=== PATIENT | female | born 1975 | race Caucasian/White ===

== ENCOUNTER 2017-06-28 08:27 | Observation (INO) | payer OTHER ==
[2017-06-28] MEDS ORDERED: PHENAZOPYRIDINE HCL 200 MG TAB PO ONE (08:49)
[2017-06-28] MEDS ORDERED: ceFAZolin 2 GM/SWFI 2 GM/20 ML SYR IVP ONE (08:49)
[2017-06-28] MEDS ORDERED: LIDOCAINE 1% 2 ML INJ ID PRN (08:50)
[2017-06-28] MEDS ORDERED: LR 1,000 ML IV ONE (08:50)
[2017-06-28] MEDS ORDERED: LIDOCAINE 1% 2 ML INJ ONE (09:02)
--- NOTE | 2017-06-28 09:22 | PDHPUP ---
History & Physical Update H&P update statement: This history and physical update is based on an assessment of the patient which was completed after admission or registration (within 24 hours), but prior to the surgery/procedure. H&P update: H&P reviewed & patient examined, no change in patient's condition since H&P completed
[2017-06-28] MEDS ORDERED: MIDAZOLAM 2 MG/2 ML VIAL IVP ONE (09:24)
--- NOTE | 2017-06-28 09:26 | PDANEPAE ---
ANE History of Present Illness Endometriosis ANE Past Medical History - Cardiovascular History Hx Hypertension: No Hx Arrhythmias: No Hx Chest Pain: No Hx Coronary Artery / Peripheral Vascular Disease: No Hx CHF / Valvular Disease: No Hx Palpitations: No - Pulmonary History Hx COPD: No Hx Asthma/Reactive Airway Disease: No Hx Recent Upper Respiratory Infection: No Hx Oxygen in Use at Home: No Hx Sleep Apnea: No Sleep Apnea Screening Result - Last Documented: Negative - Neurologic History Hx Cerebrovascular Accident: No Hx Seizures: No Hx Dementia: No - Endocrine History Hx Diabetes: No - Renal History Hx Renal Disorders: No - Liver History Hx Hepatic Disorders: No - Neurological & Psychiatric Hx Hx Neurological and Psychiatric Disorders: No - Cancer History Hx Cancer: No - Congenital Disorder History Hx Congenital Disorders: No - GI History Hx Gastrointestinal Disorders: No - Other Health History Other Health History: none - Chronic Pain History Chronic Pain: No - Surgical History Prior Surgeries: left ankle reconstruction 2013 ANE Review of Systems Review of Systems: - Exercise capacity METS (RN): 4 METS ANE Patient History - Allergies Allergies/Adverse Reactions: No Known Allergies Allergy (Verified 06/23/17 10:49) - Home Medications Home medications: home medication list seen and reviewed Home Medications: Herbals/Supplements -Info Only 1 ea PO DAILY 06/23/17 [Last Taken 06/21/17] Vitamin B Complex [B Complex] 1 ea PO DAILY 06/23/17 [Last Taken 06/21/17] - NPO status NPO Since - Liquids (Date): 06/27/17 NPO Since - Liquids (Time): 23:00 NPO Since - Solids (Date): 06/27/17 NPO Since - Solids (Time): 19:00 - Anes Hx Anes Hx: no prior problems, post operative nausea - Smoking Hx Smoking Status: Never smoked - Family Anes Hx Family Hx Anesthesia Complications: none ANE Labs/Vital Signs - Vital Signs Blood Pressure: 122/83 Heart Rate: 67 Respiratory Rate: 16 O2 Sat (%): 98 Height: 160.02 cm Weight: 72.575 kg ANE Physical Exam - Airway Neck exam: FROM Mallampati Score: Class 1 Mouth exam: normal dental/mouth exam - Pulmonary Pulmonary: no respiratory distress - Cardiovascular Cardiovascular: regular rate and rhythym - ASA Status ASA Status: II ANE Anesthesia Plan Anesthesia Plan: general endotracheal anesthesia
[2017-06-28] MEDS ORDERED: fentaNYL 100 MCG/2 ML INJ ONE ×3 (09:29→12:06)
[2017-06-28] MEDS ORDERED: LIDOCAINE 2% 5 ML SDV ONE (09:30)
[2017-06-28] MEDS ORDERED: ROCURONIUM 50 MG/5 ML VIAL ONE ×2 (09:30→10:38)
[2017-06-28] MEDS ORDERED: DEXAMETHASONE 4 MG/ML VIAL ONE (09:30)
[2017-06-28] MEDS ORDERED: PROPOFOL 200 MG/20 ML VIAL ONE (09:30)
[2017-06-28] MEDS ORDERED: ONDANSETRON 4 MG/2 ML VIAL IVP PRN ×2 (10:37→11:52)
[2017-06-28] MEDS ORDERED: PROMETHAZINE HCL 25 MG/ML INJ IVP PRN ×2 (10:37→11:52)
[2017-06-28] MEDS ORDERED: NALOXONE HCL 0.4 MG/ML INJ IVP PRN (10:37)
[2017-06-28] MEDS ORDERED: GLYCOPYRROLATE 0.2 MG/1 ML VIAL ONE (10:38)
[2017-06-28] MEDS ORDERED: SUGAMMADEX SODIUM 200 MG/2 ML VIAL IVP ONE (11:01)
[2017-06-28] MEDS ORDERED: ONDANSETRON 4 MG/2 ML VIAL ONE (11:01)
[2017-06-28] MEDS ORDERED: HYDROmorphONE/DILAUDID 1 MG/ML INJ IVP PRN (11:52)
[2017-06-28] MEDS ORDERED: DIAZEPAM 10 MG/2 ML SYR IVP PRN (11:52)
--- NOTE | 2017-06-28 11:55 | POSTOPPROG ---
Post Op Note Date of Operation: 06/28/17 Surgeon: Rolf Brennan Senior Applications Architect: Karrie Williamson` Anesthesia: GET(General Endotracheal) Pre-op Diagnosis: Dysmenorrhea, rectocele Post-op Diagnosis: Same Procedure: Robotic hyst, endo, rectocele repair Findings: Ureters function at end of case Inf/Abcess present in the surg proc area at time of surgery?: No EBL: Minimal Complications: None
[2017-06-28] MEDS ORDERED: LR 1,000 ML IV SCH (12:00)
--- NOTE | 2017-06-28 12:00 | POSTANESTH ---
Post Anesthetic Evaluation Cardiovascular Status: Similar to Pre-Op Cond Respiratory Status: Normal, Stable Level of Consciousness/Mental Status: Alert and Oriented Pain Control: Adequate, Prn Tx Ordered (Moderate pain giving fentanyl) Nausea/Vomiting Control: Adequate, Prn Tx Ordered Complications Possibly Related to Anesthesia: None Noted
[2017-06-28] MEDS: fentaNYL 100 MCG/2 ML INJ IVP PRN ×2 (12:09→12:29)
[2017-06-28] MEDS ORDERED: HYDROmorphONE/DILAUDID 1 MG/ML INJ ONE ×2 (12:31→13:21)
[2017-06-28] MEDS: HYDROmorphONE/DILAUDID 1 MG/ML INJ IVP PRN ×4 (12:32→13:22)
[2017-06-28] MEDS: KETOROLAC 30 MG/1 ML SDV IVP SCH ×2 (12:56→18:43)
[2017-06-28] MEDS ORDERED: KETOROLAC 30 MG/1 ML SDV ONE (12:56)
[2017-06-28] MEDS: HYDROCODONE/APAP 5/325 TAB PO PRN ×3 (13:59→22:15)
[2017-06-28] MEDS: SIMETHICONE 80 MG TAB CHEW PO SCH ×2 (16:59→18:42)
[2017-06-28] MEDS: DOCUSATE SODIUM 100 MG CAP PO SCH (22:20)
[2017-06-29] MEDS: KETOROLAC 30 MG/1 ML SDV IVP SCH ×2 (01:03→06:55)
[2017-06-29] MEDS: SIMETHICONE 80 MG TAB CHEW PO SCH ×2 (03:06→08:34)
[2017-06-29 06:55] LABS: HEMOGLOBIN 13.8 g/dL (12.6-16.3)
[2017-06-29 09:56] VITALS: BP 106/66; PULSE 57; RESP 16; TEMP 98.2; O2SAT 98
[2017-06-29] MEDS: DOCUSATE SODIUM 100 MG CAP PO SCH (11:05)
--- NOTE | 2017-06-29 17:54 | GDS ---
[f rep st] DISCHARGE SUMMARY DISCHARGE DIAGNOSES: 1. Dysmenorrhea. 2. Pelvic pain. 3. Symptomatic rectocele. PROCEDURES: 1. Robotic assisted total laparoscopic hysterectomy, bilateral salpingectomy, left oophorectomy. 2. Bilateral ureterolysis. 3. Excision of endometriosis. 4. Bilateral uterosacral ligament colpopexy. 5. Rectocele repair. 6. Cystoscopy. HOSPITAL COURSE: The patient has a long history of heavy and painful menses. She underwent an endom etrial ablation procedure several years ago which controlled her bleeding but not her pain. Addition ally, she had a symptomatic rectocele. She was taken to the operating room on 06/28/2017, where she underwent the above-mentioned procedures without complications. Her postoperative course was unevent ful. The morning after surgery, she was ambulating, voiding, and tolerating a general diet. She was discharged home on postoperative day #1 in good condition. She was generally using ibuprofen and Ty lenol for pain. She was given a prescription for Steele for any stronger pain. She was to follow up in the office 6 weeks after discharge. /[id number]/MODL
--- NOTE | 2017-07-20 02:55 | GOP ---
[f rep st] OPERATIVE REPORT DATE OF OPERATION: 06/28/2017 SURGEON: Rolf Brennan MD WELLNESS CONSULTANT: Karrie Williamson CFA ANESTHESIA: General. PREOPERATIVE DIAGNOSIS: 1. Dysmenorrhea. 2. Pelvic pain. 3. Rectocele. 4. Uterine prolapse. POSTOPERATIVE DIAGNOSIS: 1. Dysmenorrhea. 2. Pelvic pain. 3. Rectocele. 4. Endometriosis. 5. Uterine prolapse. PROCEDURE PERFORMED: 1. Robotic assisted total laparoscopic hysterectomy, bilateral salpingectomy, left oophorectomy. 2. Bilateral ureterolysis. 3. Excision of endometriosis. 4. Bilateral uterosacral ligament colpopexy. 5. Rectocele repair with perineorrhaphy. 6. Right ovarian pexy. 7. Cystoscopy. FINDINGS: SPECIMENS: Uterus, bilateral tubes and left ovary, and pelvic peritoneum with endometriosis. ESTIMATED BLOOD LOSS: Scant. DESCRIPTION OF PROCEDURE: The patient was taken to the operating room where she was identified. Gen eral anesthesia was administered and found to be adequate. She was placed in the lithotomy position and prepared and draped in the normal sterile fashion. A Estrada catheter was placed in her bladder. A VCare uterine manipulator was placed into the endometrial cavity and sutured to the cervix. A 1 cm infraumbilical incision was made with a scalpel. The Veress needle with CO2 gas flowing was a dvanced into the peritoneal cavity. The abdomen was then insufflated with carbon dioxide gas. The 1 2 mm trocar followed by the laparoscope were then inserted. The upper abdomen was unremarkable. The re was no evidence of endometriosis on either diaphragm, stomach or liver. Two lateral ports were pl aced on the right and 1 on the left under direct visualization. She then was placed in Trendelenburg position and the da Marcello robot docked on the left side. The instruments were then brought into the abdominal cavity under direct visualization. The patient had extensive endometriosis throughout the posterior cul-de-sac and bilateral ovarian fos wilfredo. She requested I leave [address]. The right ovary only had minimal endometriosis, as a r esult a decision was made to leave this [address] The left round ligament was divided. The anteri or leaf of the broad ligament was then incised to the bifurcation of the left common iliac vessels. A window was created in the posterior leaf to skeletonize the infundibulopelvic vessels. The vessels were then cauterized and transected. The anterior leaf of the broad ligament was then incised over the left uterine vessels and across the cervix. The bladder was gently dissected off the cervix and upper vagina. The left uterine vasculature was then cauterized and transected. The right fallopian tube was along the mesosalpinx. The utero-ovarian ligament, followed b y the round ligament was then cauterized and transected. The right uterine vasculature was then caut erized and transected. A circumferential colpotomy incision was then made with the hot jeane and th e specimen removed through the vagina. The superficial disease on the right ovary was fulgurated. A right ovarian pexy was performed by attaching the ovary to the ipsilateral round ligament near the i nternal inguinal ring. A bilateral ureterolysis was required given the extensive disease in both ova alyce fossae. The peritoneum at the pelvic brim was incised. The ureters were gently dissected free. The ureters were then lateralized off the overlying peritoneum and endometriosis from the pelvic br im all the way down to the bladder. Once this was accomplished, the entire ovarian fossa peritoneum was completely excised. The peritoneum in the posterior cul-de-sac and both uterosacral ligaments wa s also excised and sent to Pathology. The vaginal cuff was then closed with a running suture of 0 V- Loc 180. A bilateral uterosacral ligament colpopexy was performed by attaching the lateral aspects o f the vaginal cuff to the ipsilateral uterosacral ligaments near their insertion into the coccygeal-s acrospinous ligament complexes. The pelvis was then copiously irrigated with sterile saline and hemo stasis was present. The robot was then undocked. The fascia was closed with 0 Vicryl, skin with 4-0 Monocryl and surgical adhesive. Attention was then turned to the rectocele repair. A transverse incision was made along the perineal body. The posterior vaginal epithelium was undermined with the Metzenbaum scissors and incised sagi ttally. The epithelium was then dissected off the underlying rectovaginal connective tissue. The co nnective tissue was plicated in midline with interrupted sutures of 0 Vicryl. The bulbous spongiosis and transverse perineal muscles were then plicated with 0 Vicryl. The excess epithelium was then tr immed and closed with a running 2-0 Vicryl suture. Vaginal packing was then placed. Anesthesia was reversed. The patient was taken to the PACU awake, in stable condition. COMPLICATIONS: None. DISPOSITION: Patient stable to PACU. /[id number]/MODL
== END 2017-06-29 10:15 | disposition home or self-care (01) ==
LOC: F3E 08:27 → FOB 13:45
PROVIDERS: ADMIT Obstetrics & Gynecology; ATTEND Obstetrics & Gynecology
PROC: 0DQP0ZZ Repair Rectum, Open Approach (ICD-10-PCS; principal; 2017-06-28 09:45)
PROC: 8E0W8CZ Robotic Assisted Procedure of Trunk Region, Via Natural or Artificial Opening Endoscopic (ICD-10-PCS; principal; 2017-06-28 09:45)
PROC: 0UT14ZZ Resection of Left Ovary, Percutaneous Endoscopic Approach (ICD-10-PCS; principal; 2017-06-28 09:45)
PROC: 0UT74ZZ Resection of Bilateral Fallopian Tubes, Percutaneous Endoscopic Approach (ICD-10-PCS; principal; 2017-06-28 09:45)
PROC: 0UT94ZZ Resection of Uterus, Percutaneous Endoscopic Approach (ICD-10-PCS; principal; 2017-06-28 09:45)
PROC: 0UUG4JZ Supplement Vagina with Synthetic Substitute, Percutaneous Endoscopic Approach (ICD-10-PCS; principal; 2017-06-28 09:45)
PROC: 0UTC4ZZ Resection of Cervix, Percutaneous Endoscopic Approach (ICD-10-PCS; principal; 2017-06-28 09:45)
DX: N94.6 Dysmenorrhea, unspecified (principal); N80.3 Endometriosis of pelvic peritoneum; N81.6 Rectocele; N94.10 Unspecified dyspareunia; R10.2 Pelvic and perineal pain; Z18.10 Retained metal fragments, unspecified; J45.909 Unspecified asthma, uncomplicated; Z87.440 Personal history of urinary (tract) infections; Z87.442 Personal history of urinary calculi
CPT/HCPCS: 57250; 57425; 58552; G0378; J0690; J1100; J1170; J1885; J2405; J2704; J3010